=== PATIENT | male | born 1975 | race Caucasian/White ===

== ENCOUNTER → 2021-02-17 09:23 | Outpatient (BNVA) | payer MEDICAID, SELFPAY | PROVIDERS: PCP Nurse Practitioner Family; Visit Provider Internal Medicine | DX: L40.9 Psoriasis, unspecified (principal); R74.01 Elevation of levels of liver transaminase levels; M25.50 Pain in unspecified joint; G62.9 Polyneuropathy, unspecified; F17.210 Nicotine dependence, cigarettes, uncomplicated | CPT/HCPCS: 99204 ==

== ENCOUNTER 2021-02-17 10:44 | Outpatient (CLI) | payer MEDICAID, SELFPAY ==
--- NOTE | 2021-02-17 11:01 | XR_ITS ---
WS: [id number] LUMBAR SPINE TECHNIQUE: 3 views of the lumbar spine CLINICAL INFORMATION: R74.01 - Elevation of levels of liver transaminase levels COMPARISON: None. FINDINGS: Cholecystectomy clips. Five [id number] lumbar vertebral bodies. Disc space heights are well preserved. No compression f ractures. No visualized pars defects. No spondylolisthesis. Visualized sacroiliac joints are normal. Mild facet arthropathy L5-S1. Normal visualized soft tissues. Partially visualized bowel gas pattern is normal. XR/XR lumbar spine 2-3V* [id number] IMPRESSION: 1. Normal lumbar alignment. No acute compression. 2. Disc space heights vertebral body heights well-preserved. 3. Mild facet arthropathy L5-S1.
--- NOTE | 2021-02-17 11:01 | XR_ITS ---
WS: [id number] TECHNIQUE: 2 views of the right hand CLINICAL INFORMATION: R74.01 - Elevation of levels of liver transaminase levels COMPARISON: None. FINDINGS: No significant erosive changes. Moderate narrowing of the radiocarpal joint. Normal metatarsals. Mini mal IP joints. Normal carpal bones. Normal scaphoid and lunate. XR/XR hand RT 2V [id number] IMPRESSION: No significant erosive changes.
--- NOTE | 2021-02-17 11:01 | XR_ITS ---
WS: [id number] HIPS BILATERAL TECHNIQUE: 5 views bilateral hips Including pelvis CLINICAL INFORMATION: R74.01 - Elevation of levels of liver transaminase HIP PAIN COMPARISON: None. FINDINGS: Minimal degenerative arthritis both hips with mild joint space narrowing. No acute fractures. Normal visualized pubic rami. No erosive changes. XR/XR hip BI 3-4V wo/w pel [id number] IMPRESSION: Minimal degenerative arthritis both hips. Tonnis classification LEFT: grade 1: sclerosis of femoral head and acetabulum o r slight joint space narrowing or slight lippig at joint margins Tonnis classification RIGHT: grade 1: sclerosis of femoral head and acetabulum or slight joint space narrowing or slight lippig at joint margins
--- NOTE | 2021-02-17 11:01 | XR_ITS ---
WS: [id number] TECHNIQUE: 2 views of the left hand CLINICAL INFORMATION: R74.01 - Elevation of levels of liver transaminase levels COMPARISON: None. FINDINGS: No significant erosive changes. Moderate narrowing of the radiocarpal joint. Normal metatarsals. Mini mal IP joints. Normal carpal bones. XR/XR hand LT 2V [id number] IMPRESSION: 1. No significant erosive changes.
== END 2021-02-17 10:45 | disposition home or self-care (01) ==
PROVIDERS: PCP Nurse Practitioner Family; Visit Provider Internal Medicine
DX: R74.01 Elevation of levels of liver transaminase levels (principal)
CPT/HCPCS: 72100; 73120; 73522